=== PATIENT | female | born 1950 | race Caucasian/White ===

== ENCOUNTER 2017-02-24 11:06 | Emergency (ER) | payer OTHER ==
[2017-02-24] MEDS ORDERED: Acetaminophen TAB* 325 MG PO ONE (11:47)
--- NOTE | 2017-02-24 12:49 | RAD ---
INDICATION: Right knee injury. TECHNIQUE: 2 views of the right knee were obtained. FINDINGS: The bones are normal alignment. No joint effusion or fracture is seen. There is mild to moderate osteoarthritic change in the medial and patellofemoral margins. IMPRESSION: NO EVIDENCE FOR FRACTURE. IF THE PATIENT'S SYMPTOMS PERSIST RECOMMEND FOLLOW-UP IMAGING.
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
[2017-02-24 14:08] VITALS: BP 0/0
== END 2017-02-24 14:07 | disposition home or self-care (01) ==
LOC: ED 11:06
DX: M25.561 Pain in right knee (principal); Z87.891 Personal history of nicotine dependence; Z88.5 Allergy status to narcotic agent
CPT/HCPCS: 99282; A9270-GY